=== PATIENT | male | born 1965 | race Caucasian/White ===

== ENCOUNTER 2018-06-03 10:32 | Inpatient (IN) | payer MEDICAID ==
[2018-06-03] MEDS ORDERED: Sodium Chloride 0.9% 1,000 ML IV ONE (10:58)
--- NOTE | 2018-06-03 11:40 | C.PDOC ---
History Of Present Illness 52 year old male presents to the ED for evaluation of intermittent palpitations, lightheaded, and shortness of breath that started today. The patient reports waking up and feeling lightheaded. Denies chest pain, fever, chills, and any other associated symptoms. He also admits to feeling depressed. Chief Complaint (Nursing): Dizziness/Lightheaded History Per: Patient History/Exam Limitations: no limitations Onset/Duration Of Symptoms: Hrs (prior to arrival. ) Current Symptoms Are (Timing): Still Present Fall Associated With With Symptoms: No Recent travel outside of the [place]: No Past Medical History Reviewed: Historical Data, Nursing Documentation, Vital Signs Vital Signs: Last Vital Signs Temp 98.4 F 06/03/18 10:44 Pulse 101 H 06/03/18 10:44 Resp 18 06/03/18 10:44 BP 137/69 06/03/18 10:44 Pulse Ox 98 06/03/18 10:44 Family History: States: Unknown Family Hx - Social History Hx Tobacco Use: No Hx Alcohol Use: No Hx Substance Use: No Review Of Systems Except As Marked, All Systems Reviewed And Found Negative. Constitutional: Negative for: Fever, Chills Cardiovascular: Positive for: Palpitations. Negative for: Chest Pain Respiratory: Positive for: Shortness of Breath Neurological: Positive for: Other (lightheaded. ) Psych: Positive for: Depression. Negative for: Psychosis, Suicidal ideation (or homicidal ideation) Physical Exam - Physical Exam Appears: Well, Non-toxic, No Acute Distress Skin: Normal Color, Warm, Dry Head: Atraumatic, Normacephalic Eye(s): bilateral: Normal Inspection Oral Mucosa: Moist Neck: Normal ROM, Supple Chest: Symmetrical, No Deformity Cardiovascular: Rhythm Regular, No Murmur Respiratory: Normal Breath Sounds, No Rales, No Rhonchi, No Wheezing Gastrointestinal/Abdominal: Normal Exam, Soft, No Tenderness Extremity: Normal ROM (of upper extremities. ), No Deformity, Other (mild tremors to hands bilaterally. ) Neurological/Psych: Oriented x3, Normal Speech, Normal Cognition ED Course And Treatment - Laboratory Results Result Diagrams: 06/03/18 11:39 06/03/18 11:39 ECG Rhythm: Sinus Tachycardia Interpretation Of ECG: No ST elevation. QT normal. Rate From EC O2 Sat by Pulse Oximetry: 98 (RA) Pulse Ox Interpretation: Normal - Radiology CXR: Interpreted by Me, Viewed By Me CXR Interpretation: Yes: Cardiomegaly, Pnemothorax. No: Infiltrates - CT Scan/US CTA Chest Other Rad Studies (CT/US): Read By Radiologist, Radiology Report Reviewed CT/US Interpretation: Accession No. : [id number]. Patient Name / ID : RADHA LOPEZ / [id number]. Exam Date : 06/03/2018 15:35:04 ( Approved ). Study Comment : Sex / Age : M / 52Y. Creator : Nikos Gotti. Dictator : Sarita Cortes MD. Extension Service Specialist : Millinery Blocker : Sarita Cortes MD. Approver2 : Report Date : 06/03/2018 15:45:37. My Comment : . Date of service: 06/03/2018. PROCEDURE: CT Chest with contrast (Pulmonary Angiogram). HISTORY: r/o PE. COMPARISON: Plain radiograph performed earlier the same day. TECHNIQUE: Axial computed tomography images were obtained of the chest in the pulmonary arterial phase of enhancement. Coronal and sagittal reformatted images were created and reviewed. Intravenous contrast dose: 100 mL Visipaque 320. Radiation dose: Total exam DLP = 565.02 mGy-cm. This CT exam was performed using one or more of the following dose reduction techniques: Automated exposure control, adjustment of the mA and/or kV according to patient size, and/or use of iterative reconstruction technique. FINDINGS: PULMONARY ARTERIES: There are no filling defects in the pulmonary arteries to suggest acute pulmonary embolism. AORTA: No acute findings. No thoracic aortic aneurysm. No aortic atherosclerotic calcification or mural plaque present. LUNGS: The lungs are well inflated and clear. No mass or pulmonary consolidation. There is a 3 mm nodule in peripheral left lower lobe (series 4, image 70). PLEURAL SPACES: No effusion or pneumothorax. HEART: No cardiomegaly. No significant pericardial effusion. LYMPH NODES: No pathologic mediastinal or hilar lymphadenopathy. Subcentimeter mediastinal lymph nodes are likely reactive.. BONES, CHEST WALL: Within normal limits for the patient's age. No fracture or destructive lesion. OTHER FINDINGS: There is diffuse low- attenuation in the liver. The adrenal glands are normal. No cholelithiasis. IMPRESSION: No CTA evidence for acute pulmonary embolism. Clear lungs. Severe diffuse abnormal low density in the liver could be related to fatty liver however nonspecific infectious/inflammatory/toxic etiologies cannot be entirely excluded. Clinical and laboratory correlation is advised. Medical Decision Making Medical Decision Making: Initial plan: -Blood sent. -CXR -EKG -81 mg PO Aspirin -IV fluids Progress/Update: Pt still has tremors. Now admits he drinks everyday, would like to stay for detox. PO Ativan given. Fluids changed to banana bag. insemination worker will consult and evaluate for detox. Labs reviewed, + D dimer elevated. Trop negative. + Elevated LFTs CTA ordered per PE protocol. 16:05 CTA is negative for PE. Patient is medically cleared for detox admission. Pending crisis evaluation and final disposition. 18:35 Discussed with land surveying survey worker, patient is to be admitted under Dr. Saldivar's service for alcohol use disorder and depression. Disposition Discussed With .: Marco A Saldivar Doctor Will See Patient In The: Hospital Counseled Patient/Family Regarding: Studies Performed, Diagnosis - Disposition Disposition: HOSPITALIZED Disposition Time: 18:38 Condition: STABLE - POA Present On Arrival: None - Clinical Impression Clinical Impression: Depression, Alcohol abuse - Scribe Statement The provider has reviewed the documentation as recorded by the Scribe (Lizette Jaramillo) Provider Attestation: All medical record entries made by the Ameliaibe were at my direction and personally dictated by me. I have reviewed the chart and agree that the record accurately reflects my personal performance of the history, physical exam, medical decision making, and the department course for this patient. I have also personally directed, reviewed, and agree with the discharge instructions and disposition.
[2018-06-03 11:43] LABS: EOS # 0.1 K/uL (0.0-0.7); EOS % 2.6 % (0.0-4.0); HEMOGLOBIN 15.2 g/dL (12.0-18.0); LYMPH # 0.4 K/uL (1.0-4.3); LYMPH % 13.4 % (20.0-40.0); MEAN CELL VOLUME 93.3 fL (80.0-94.0); MEAN CORPUSCULAR HEMOGLOBIN 32.3 pg (27.0-31.0); MEAN CORPUSCULAR HGB CONC 34.6 g/dL (33.0-37.0); MEAN PLATELET VOLUME 8.8 fL (7.2-11.7); MONO # 0.4 K/uL (0.0-0.8); MONO % 11.3 % (0.0-10.0); NEUT # 2.3 K/uL (1.8-7.0); NEUT % 71.7 % (50.0-75.0); RBC 4.72 Mil/uL (4.40-5.90); RED CELL DISTRIBUTION WIDTH 13.9 % (11.5-14.5); WHITE BLOOD COUNT 3.2 K/uL (4.8-10.8)
--- NOTE | 2018-06-03 12:00 | RAD ---
Date of service: 06/03/2018 PROCEDURE: CHEST RADIOGRAPH, 1 VIEW HISTORY: chest pain COMPARISON: None available. FINDINGS: LUNGS: The lungs are well inflated and clear. PLEURA: No pneumothorax or pleural effusion. CARDIOVASCULAR: The heart is normal in size. No aortic atherosclerotic calcifications present. OSSEOUS STRUCTURES: Within normal limits for the patient's age. VISUALIZED UPPER ABDOMEN: Normal. OTHER FINDINGS: None. IMPRESSION: No active pulmonary disease.
[2018-06-03 12:02] LABS: ALB/GLOB RATIO 1.5 (1.0-2.1); ALBUMIN 4.3 g/dL (3.5-5.0); ALT/SGPT 226 U/L (21-72); AST/SGOT 305 U/L (17-59); BLOOD UREA NITROGEN 10 mg/dL (9-20); CALCIUM 8.2 mg/dl (8.6-10.4); GFR NON-AFRICAN AMERICAN > 60
[2018-06-03] MEDS ORDERED: Multivitamin (MVI) 10 ML, Thiamine 100 MG, Folic Acid 1 MG in Sodium Chloride 0.9% 1,00... IV STA (12:17)
[2018-06-03] MEDS ORDERED: Potassium Chloride 20 mEq ER Tab PO STA (12:40)
[2018-06-03] MEDS ORDERED: Potassium Chloride 20 mEq ER Tab PO ONE ×2 (13:32→13:35)
[2018-06-03 13:54] LABS: SQUAMOUS EPITHIAL < 1 /hpf (0-5); URINE BACTERIA RARE (<OCC); URINE BILIRUBIN NEGATIVE (NEGATIVE); URINE BLOOD 1+ (NEGATIVE); URINE CLARITY Clear (Clear); URINE COLOR Yellow (YELLOW); URINE GLUCOSE (UA) NORMAL (Normal); URINE LEUKOCYTE ESTERASE NEG Leu/uL (Negative); URINE PROTEIN 1+ mg/dL (NEGATIVE)
[2018-06-03 14:08] LABS: B-TYPE NATRIURETIC PEPTIDE 24.6 pg/mL (0-900)
[2018-06-03 14:14] LABS: BARBITURATES, UR NEGATIVE (NEGATIVE); BENZODIAZEPINES, UR NEGATIVE (NEGATIVE); OPIATES, UR NEGATIVE (NEGATIVE); PHENCYCLIDINE, UR NEGATIVE (NEGATIVE)
[2018-06-03] MEDS ORDERED: Iodixanol 320 MG/ML 100 ML BOTTLE IV ONE (15:02)
--- NOTE | 2018-06-03 16:13 | CT ---
Date of service: 06/03/2018 PROCEDURE: CT Chest with contrast (Pulmonary Angiogram) HISTORY: r/o PE COMPARISON: Plain radiograph performed earlier the same day. TECHNIQUE: Axial computed tomography images were obtained of the chest in the pulmonary arterial phase of enhancement. Coronal and sagittal reformatted images were created and reviewed. Intravenous contrast dose: 100 mL Visipaque 320 Radiation dose: Total exam DLP = 565.02 mGy-cm. This CT exam was performed using one or more of the following dose reduction techniques: Automated exposure control, adjustment of the mA and/or kV according to patient size, and/or use of iterative reconstruction technique. FINDINGS: PULMONARY ARTERIES: There are no filling defects in the pulmonary arteries to suggest acute pulmonary embolism. AORTA: No acute findings. No thoracic aortic aneurysm. No aortic atherosclerotic calcification or mural plaque present. LUNGS: The lungs are well inflated and clear. No mass or pulmonary consolidation. There is a 3 mm nodule in peripheral left lower lobe (series 4, image 70). PLEURAL SPACES: No effusion or pneumothorax. HEART: No cardiomegaly. No significant pericardial effusion. LYMPH NODES: No pathologic mediastinal or hilar lymphadenopathy. Subcentimeter mediastinal lymph nodes are likely reactive.. BONES, CHEST WALL: Within normal limits for the patient's age. No fracture or destructive lesion OTHER FINDINGS: There is diffuse low-attenuation in the liver. The adrenal glands are normal. No cholelithiasis. IMPRESSION: No CTA evidence for acute pulmonary embolism. Clear lungs. Severe diffuse abnormal low density in the liver could be related to fatty liver however nonspecific infectious/inflammatory/toxic etiologies cannot be entirely excluded. Clinical and laboratory correlation is advised.
--- NOTE | 2018-06-03 18:59 | PCM.BM ---
Treatment Plan Problems - Problems identified on initial assessmt knowledge deficit:alcohol use Date Initiated: 06/03/18 Time Initiated: 18:57 Assessment reference: NA Status: Active anxiety related to substance use Date Initiated: 06/03/18 Time Initiated: 18:58 Assessment reference: NA Status: Active denial Date Initiated: 06/03/18 Time Initiated: 18:58 Assessment reference: NA Status: Active defensive coping Date Initiated: 06/03/18 Time Initiated: 18:59 Assessment reference: NA Status: Active Treatment assets and liabiliti Patient Assests: ADL independent, cognitively intact Patient Liabilities: substance abuse - Milieu Protocol Maintain good personal hygiene: daily Encourage regular showers, daily Remind patient to perform daily oral care, daily Assist patient to perform ADL's Conduct patient checks and document Observation sheet: Q15 minutes Maintain personal safety: every shift Educate patient to report safety concerns to staff, every shift Monitor environment for contraband/sharps Medication safety: Monitor for expected outcome, potential side effects: every shift, Assess barriers to learning: every shift, Assess readiness for medication education: every shift
[2018-06-03 19:15] VITALS: RESP 18
[2018-06-04] MEDS: Multiple Vitamins Tab PO SCH (09:39)
--- NOTE | 2018-06-04 10:08 | PCM.PSYCH ---
Initial Psychiatric Evaluation - Initial Psychiatric Evaluation Type of Admission: Voluntary Legal Status: Capacity Chief Complaint (in patient's own words): "I need to stop alcohol" History of Present Illness and Precipitating Events: 52 yo male, has a girlfriend and four older children, employed at a [employer] and currently living with his sister in [place], presents for detox from alcohol. Pt reports drinking 11 shots of vodka daily. Pt reports he began drinking socially at age 14 and then heavily since age 21. He points out that last 4 years have been the worse. Pt admits to blackouts but denies any seizures, not sure about DTs. He denies any rehab/detox programs or attending any AA meetings. Pt denies drug use. Pt admits to current feelings of depression with SI. Denies HI. He doesn't have a plan and agrees to follow safety plan, contracted for safety. He has other depressive sxs too. Stressor is financial problems and recent relational issues with his children who stopped calling. PMHx: denies PSHx: denies Past Psychiatric Hx: Has been depressed incrreasingly but did not get treatment Fam Psych Hx: Father was an alcoholic, of a heart attack Brother with unspecified psych hx Current Medications: Active Medications Generic Name Dose Route Start Last Admin Trade Name Freq PRN Reason Stop Dose Admin Aspirin 81 mg 06/04/18 10:00 06/04/18 09:38 Aspirin Chewable PO 81 mg DAILY DAVID Administration Calcium/Vitamin D 1 tab 06/04/18 10:00 Oscal-D 250 Mg-125 Units Tab PO DAILY DAVID Clonidine HCl 0.1 mg 06/03/18 21:12 06/03/18 21:32 Catapres PO 0.1 mg Q4H PRN Administration Symptoms of alcohol withdrawl Folic Acid 1 mg 06/04/18 10:00 06/04/18 09:39 Folic Acid PO 1 mg DAILY DAVID Administration Gabapentin 100 mg 06/04/18 10:00 06/04/18 09:35 Neurontin PO 100 mg TID DAVID Administration Hydroxyzine HCl 25 mg 06/03/18 21:15 06/03/18 21:32 Atarax PO 25 mg Q4H PRN Administration Anxiety Ibuprofen 400 mg 06/03/18 21:15 Motrin Tab PO Q6H PRN Pain, moderate (4-7) Lorazepam 2 mg 06/03/18 22:00 06/04/18 05:59 Ativan PO 06/08/18 21:59 2 mg Q8H DAVID Administration Taper Lorazepam 1 mg 06/03/18 21:12 Ativan PO Q4H PRN Symptoms of alcohol withdrawl Multivitamins 1 tab 06/04/18 10:00 06/04/18 09:39 Hexavitamin PO 1 tab DAILY DAVID Administration Thiamine HCl 100 mg 06/04/18 10:00 06/04/18 09:39 Vitamin B1 Tab PO 100 mg DAILY DAVID Administration Trazodone HCl 50 mg 06/03/18 21:12 06/03/18 21:32 Desyrel PO 50 mg HS PRN Administration Insomnia Past Psychiatric History - Past Psychiatric History Previous Treatment History: None Pertinent Medical Hx (Current Medical&Sleep Prob, Allergies): Allergies Allergy/AdvReac Type Severity Reaction Status Date / Time No Known Allergies Allergy Verified 03/07/15 21:04 Aspirin PO PRN PRN 06/03/18 Review of Systems - Neurological Neurological: UNREMARKABLE - Psychiatric Psychiatric: Abnormal Sleep Pattern, Anhedonia, Anxiety, Change in Appetite, Depression, Difficulty Concentrating, Mood Swings, Suicidal Ideation (On and off and w/o plan or intention). absent: Hallucinations, Homicidal Ideation, Irritability, Paranoia Mental Status Examination - Personal Presentation Personal Presentation: Looks stated age - Affect Affect: Blunted - Motor Activity Motor Activity: Calm - Reliability in Providing Information Reliability in Providing Information: Good - Speech Speech: Organized - Mood Mood: Depressed, Anxious - Formal Thought Process Formal Thought Process: No Impairment - Cognitive Functions Orientation: Person, Place, Situation, Time Sensorium: Alert Attention/Concentration: Easily distracted Estimate of Intelligence: Average Judgement: Intact, as evidence by: Insight regarding need for hospitalization Memory: Recent intact, as evidence by: Ability to recall events of the day, Remote intact, as evidenced by: Abilit to recall sig. life events - Risk Risk: Withdrawal, Diminished functioning - Strength & Assets Inventory Strength & Assets Inventory: Employment history, Cooperative - Limitations Limitations: Other DSM 5 DX - DSM 5 DSM 5 Diagnosis: Alcohol withdrawal Alcohol use disorder, severe Major depressive disorder, severe, w/o psychosis, single - Recommended/Plan of Treatment Treatment Recommendations and Plan of Treatment: Taper with Librium Gabapentin for augmentation Start on Lexapro for depression As needed medications Clonidine, Atarax, Motrin, Ativan and Trazodone All risks, benefits and alternatives of the meds discussed, and the pt agreed and understood. Attend groups and activities Supportive therapy and psychoeducation MO for abstinence CBT for relapse prevention Encourage MAT Refer to rehab or IOP, and self-help groups Teach healthy lifestyle methods, i.e. diet, exercise, meditation Smoking cessation with MO Nicotine patch if needed 34min Projected ELOS: 4-5 days Prognosis: good w treatment - Smoking Cessation Smoking Cessation Initiated: Yes
[2018-06-04] MEDS: Calcium-Vit D 250 mg-125 Units Tab UD PO SCH (10:58)
--- NOTE | 2018-06-04 11:05 | CP.PCM.CON ---
History of Present Illness - History of Present Illness History of Present Illness: PGY-1 Medicine Consult Note for Dr. Julius Monroy Patient is a 52 year old male with history of alcohol abuse and depression who medicine has been consulted on for rash which patient states he has had since about age 21. He states that the rash tends to come/is worse in the winter and worse with stress. It is sometimes pruritic and he will sometimes scratch himself and cause bleeding. He states that he is currently having a flare up for the first time in a couple of years. Prior to this recent outbreak, he has not had any skin rash in a couple of years. When he has an outbreak, the rash begins on his feet/ankles and progresses proximally to legs, stomach, buttocks, and arms. Patient denies any new soaps, creams, lotions, or shampoos. He denies any known allergies. He has not travelled outside of the since four years ago when he went to visit his home country of [place]. Patient is not aware of any formal dermatological diagnosis in the past, but does state that he has seen a senior quality control inspector in [place] and was prescribed Dermovate cream (which is Clobetasol, a topical corticosteroid) which the rash is responsive to. Of note, the patient has committed himself voluntarily to detox/psych and had earlier stated that if he had a gun he would kill himself. However when I interviewed the patient, he stated that he is feeling much better with his depression at the moment and is no longer having SI/HI. PMHx: Major depressive disorder Social history: Drinks daily, about 11 shots from 12:00pm to 10:00pm. Quit smo katie 6 years ago - used to smoke 1/2 ppd from age [age]. Used cocaine as a teen. Lives in an apartment in [place] with his sister. 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 Home medications: ASA 81 mg PO daily Allergies: NKA Surgeries: Denies Hospitalizations: Previous for psych/detox Family Hx: Mother - HTN PMD: Saw a PMD in past who , does not see a PMD currently Code: Full Code Review of Systems - Constitutional Constitutional: absent: Chills, Fatigue, Fever - EENT Eyes: absent: Blind Spots, Blurred Vision Ears: absent: Dizziness Nose/Mouth/Throat: absent: Nasal Congestion, Nasal Discharge, Dry Mouth - Cardiovascular Cardiovascular: absent: Chest Pain, Dyspnea, Palpitations - Respiratory Respiratory: absent: Cough, Dyspnea - Gastrointestinal Gastrointestinal: absent: Abdominal Pain, Nausea, Vomiting - Genitourinary Genitourinary: absent: Dysuria, Hematuria - Musculoskeletal Musculoskeletal: absent: Numbness, Tingling - Integumentary Integumentary: Dry Skin, Rash (as described) - Neurological Neurological: absent: Dizziness, Numbness, Tingling - Psychiatric Psychiatric: Anxiety, Depression Past Patient History - Infectious Disease Hx of Infectious Diseases: None - Past Medical History & Family History Past Medical History?: No - Past Social History Smoking Status: Former Smoker - CARDIAC Hx Cardiac Disorders: No Hx Hypertension: No - PULMONARY Hx Tuberculosis: No - NEUROLOGICAL HX Cerebrovascular Accident: No Hx Seizures: No - HEMATOLOGICAL/ONCOLOGICAL Hx Cancer: No Hx Human Immunodeficiency Virus (HIV): No - MUSCULOSKELETAL/RHEUMATOLOGICAL Hx Falls: No - GENITOURINARY/GYNECOLOGICAL Hx Sexually Transmitted Disorders: No - PSYCHIATRIC Hx Substance Use: Yes - SURGICAL HISTORY Hx Surgeries: No - ANESTHESIA Hx Anesthesia: No Meds Home Medications: Home Medication List Medication Instructions Recorded Confirmed Type Clobetasol 0.05% [Temovate 0.05% 30 applic TOP BID #1 tube 06/04/18 Rx OINTMENT] Allergies/Adverse Reactions: Allergies Allergy/AdvReac Type Severity Reaction Status Date / Time No Known Allergies Allergy Verified 03/07/15 21:04 - Medications Medications: Current Medications Aspirin (Aspirin Chewable) 81 mg PO DAILY [facility] Last Admin: 06/04/18 09:38 Dose: 81 mg Calcium/Vitamin D (Oscal-D 250 Mg-125 Units Tab) 1 tab PO DAILY [facility] Last Admin: 06/04/18 10:58 Dose: 1 tab Clonidine HCl (Catapres) 0.1 mg PO Q4H PRN PRN Reason: Symptoms of alcohol withdrawl Last Admin: 06/03/18 21:32 Dose: 0.1 mg Escitalopram Oxalate (Lexapro) 5 mg PO DAILY [facility] Last Admin: 06/04/18 10:58 Dose: 5 mg Folic Acid (Folic Acid) 1 mg PO DAILY [facility] Last Admin: 06/04/18 09:39 Dose: 1 mg Gabapentin (Neurontin) 100 mg PO TID [facility] Last Admin: 06/04/18 09:35 Dose: 100 mg Hydroxyzine HCl (Atarax) 25 mg PO Q4H PRN PRN Reason: Anxiety Last Admin: 06/03/18 21:32 Dose: 25 mg Ibuprofen (Motrin Tab) 400 mg PO Q6H PRN PRN Reason: Pain, moderate (4-7) Lorazepam (Ativan) 2 mg PO Q8H DAVID; Taper Stop: 06/08/18 21:59 Last Admin: 06/04/18 05:59 Dose: 2 mg Lorazepam (Ativan) 1 mg PO Q4H PRN PRN Reason: Symptoms of alcohol withdrawl Multivitamins (Hexavitamin) 1 tab PO DAILY [facility] Last Admin: 06/04/18 09:39 Dose: 1 tab Thiamine HCl (Vitamin B1 Tab) 100 mg PO DAILY [facility] Last Admin: 06/04/18 09:39 Dose: 100 mg Trazodone HCl (Desyrel) 50 mg PO HS PRN PRN Reason: Insomnia Last Admin: 06/03/18 21:32 Dose: 50 mg Physical Exam - Head Exam Head Exam: ATRAUMATIC, NORMAL INSPECTION - Eye Exam Eye Exam: EOMI, Normal appearance - ENT Exam ENT Exam: Mucous Membranes Moist - Respiratory Exam Respiratory Exam: Clear to Auscultation Bilateral, NORMAL BREATHING PATTERN. absent: Rhonchi - Cardiovascular Exam Cardiovascular Exam: REGULAR RHYTHM, +S1, +S2. absent: Tachycardia, Clicks, Diastolic murmur, Systolic Murmur - Extremities Exam Extremities exam: Negative for: pedal edema, tenderness - Neurological Exam Neurological exam: Alert, CN II-XII Intact, Oriented x3 - Psychiatric Exam Psychiatric exam: Normal Affect, Normal Mood Additional comments: Feeling less depressed. Denies suicidal or homicidal ideation at present - Skin Skin Exam: Dry Additional comments: Non-blanching maculopapular rash (approx 1cm diameter macules) extending form ankles proximally to legs, abdomen, buttocks, and arms. Excoriations noted, especially around ankles with some scabbing. No active bleeding. Dry skin. Results - Vital Signs Recent Vital Signs: Last Vital Signs Temp 97.7 F 06/04/18 08:23 Pulse 81 06/04/18 08:23 Resp 18 06/04/18 08:23 BP 146/77 06/04/18 08:23 Pulse Ox 98 06/04/18 08:23 - Labs Result Diagrams: 06/03/18 11:39 06/03/18 11:39 Labs: Laboratory Results - last 24 hr 06/03/18 06/03/18 06/03/18 11:39 11:39 11:39 WBC 3.2 L RBC 4.72 Hgb 15.2 Hct 44.0 MCV 93.3 MCH 32.3 H MCHC 34.6 RDW 13.9 Plt Count 178 MPV 8.8 Neut % (Auto) 71.7 Lymph % (Auto) 13.4 L Starke % (Auto) 11.3 H Eos % (Auto) 2.6 Baso % (Auto) 1.0 Neut # (Auto) 2.3 Lymph # (Auto) 0.4 L Starke # (Auto) 0.4 Eos # (Auto) 0.1 Baso # (Auto) 0.0 D-Dimer, Quantitative 395 H Sodium 140 Potassium 3.2 L Chloride 102 Carbon Dioxide 26 Anion Gap 15 BUN 10 Creatinine 0.5 L Est GFR ( Amer) > 60 Est GFR (Non-Af Amer) > 60 Random Glucose 93 Calcium 8.2 L Phosphorus 3.2 Magnesium 2.0 Total Bilirubin 0.8 AST 305 H ALT 226 H Alkaline Phosphatase 119 Troponin I < 0.0120 NT-Pro-B Natriuret Pep 24.6 Total Protein 7.1 Albumin 4.3 Globulin 2.8 Albumin/Globulin Ratio 1.5 Urine Color Urine Clarity Urine pH Ur Specific [place] Urine Protein Urine Glucose (UA) Urine Ketones Urine Blood Urine Nitrate Urine Bilirubin Urine Urobilinogen Ur Leukocyte Esterase Urine WBC (Auto) Urine RBC (Auto) Ur Squamous Epith Cells Urine Bacteria Urine Opiates Screen Urine Methadone Screen Ur Barbiturates Screen Ur Phencyclidine Scrn Ur Amphetamines Screen U Benzodiazepines Scrn U Oth Cocaine Metabols U Cannabinoids Screen Alcohol, Quantitative 50 H 06/03/18 06/03/18 13:38 13:38 WBC RBC Hgb Hct MCV MCH MCHC RDW Plt Count MPV Neut % (Auto) Lymph % (Auto) Starke % (Auto) Eos % (Auto) Baso % (Auto) Neut # (Auto) Lymph # (Auto) Starke # (Auto) Eos # (Auto) Baso # (Auto) D-Dimer, Quantitative Sodium Potassium Chloride Carbon Dioxide Anion Gap BUN Creatinine Est GFR ( Amer) Est GFR (Non-Af Amer) Random Glucose Calcium Phosphorus Magnesium Total Bilirubin AST ALT Alkaline Phosphatase Troponin I NT-Pro-B Natriuret Pep Total Protein Albumin Globulin Albumin/Globulin Ratio Urine Color Yellow Urine Clarity Clear Urine pH 6.0 Ur Specific [place] 1.018 Urine Protein 1+ H Urine Glucose (UA) Normal Urine Ketones 1+ H Urine Blood 1+ H Urine Nitrate Negative Urine Bilirubin Negative Urine Urobilinogen 4.0 Ur Leukocyte Esterase Neg Urine WBC (Auto) 1 Urine RBC (Auto) 1 Ur Squamous Epith Cells < 1 Urine Bacteria Rare Urine Opiates Screen Negative Urine Methadone Screen Negative Ur Barbiturates Screen Negative Ur Phencyclidine Scrn Negative Ur Amphetamines Screen Negative U Benzodiazepines Scrn Negative U Oth Cocaine Metabols Negative U Cannabinoids Screen Negative Alcohol, Quantitative Assessment & Plan - Assessment and Plan (Free Text) Assessment: Psoriasis -Clobetasol 0.05 topical ointment BID - Apply gently to affected areas by rubbing in completely -Continue to monitor -Alcohol use will worsen EtOH Abuse/Detox -Mangement per psych --Observation on 7t detox -Meds: --Thiamine/Folic acid/Multivitamin --Avitan 2mg PO Q8 DAVID --Ativan 1mg PO Q4 prn for symptoms of alcohol withdrawal --Trazodone 50 mg PO HS prn for insomnia --Clonidine 0.1 mg PO Q4 prn withdrawal/hypertension --Gabapentin 100 mg PO TID Depression/Anxiety -Lexapro 5mg PO daily -Atarax 25 mg PO Q4 prn anxiety -Monitor for suicidal ideations PPx -No VTE ppx indicated - patient on detox floor, ambulating, not bed-bound Prescription for Clobetasol will be left in patient's chart. Please note drinking alcohol will worsen this condition. Medicine signing off. Assessment/Plan discussed with Dr. Julius Harris, PGY-1
[2018-06-04 17:53] LABS: ALB/GLOB RATIO 1.4 (1.0-2.1); ALBUMIN 3.9 g/dL (3.5-5.0); ALT/SGPT 178 U/L (21-72); AST/SGOT 214 U/L (17-59); BLOOD UREA NITROGEN 10 mg/dL (9-20); CALCIUM 8.3 mg/dl (8.6-10.4); GFR NON-AFRICAN AMERICAN > 60
--- NOTE | 2018-06-04 21:30 | CARD ---
APPROVED REPORT Date of service: 06/03/2018 EKG Measurement Heart [id number] MD [id number] <Conclusion> Sinus tachycardia Otherwise normal ECG
--- NOTE | 2018-06-04 22:25 | CP.PCM.PCO ---
Physician Communication Note - Physician Communication Note Physician Communication Note: Please see above
[2018-06-05] MEDS: Multiple Vitamins Tab PO SCH (09:54)
[2018-06-05] MEDS: Calcium-Vit D 250 mg-125 Units Tab UD PO SCH (10:58)
[2018-06-06] MEDS: Calcium-Vit D 250 mg-125 Units Tab UD PO SCH (09:27)
[2018-06-06] MEDS: Multiple Vitamins Tab PO SCH (09:27)
[2018-06-07 06:32] VITALS: O2SAT 98
--- NOTE | 2018-06-07 08:21 | PCM.PYCHDC ---
Mental Status Examination - Mental Status Examination Orientation: Person Discharge Summary - Discharge Note Consultations:: List each consultation separately and include: 1. Reason for request. 2. Findings. 3. Follow-up Summary of Hospital Course include:: 1. Description of specific treatment plan utilized for patients during their course of treatmen. 2. Summarize the time- course for resolution of acute symptoms and/or regressed behaviors. 3. Describe issues identified and worked on during hospitalization. 4. Describe medication utilized. 5. Describe medical problems identified and treated. 6. Reassessment of suicide risk Summary of Hospital Course: 52 yo male, has a girlfriend and four older children, employed at a [employer] and currently living with his sister in [place], presents for detox from alcohol. Pt reports drinking 11 shots of vodka daily. Pt reports he began drinking socially at age 14 and then heavily since age 21. He points out that last 4 years have been the worse. Pt admits to blackouts but denies any seizures, not sure about DTs. He denies any rehab/detox programs or attending any AA meetings. Pt denies drug use. Pt admits to current feelings of depression with SI. Denies HI. He doesn't have a plan and agrees to follow safety plan, contracted for safety. He has other depressive sxs too. Stressor is financial problems and recent relational issues with his children who stopped calling. PMHx: denies PSHx: denies Past Psychiatric Hx: Has been depressed incrreasingly but did not get treatment Fam Psych Hx: Father was an alcoholic, of a heart attack Brother with unspecified psych hx He will go to [facility] IOP. - Final Diagnosis (DSM 5) Condition upon Discharge: STABLE Disposition: HOME/ ROUTINE Follow-up Treatment Plan: Taper with Librium Gabapentin for augmentation Start on Lexapro for depression As needed medications Clonidine, Atarax, Motrin, Ativan and Trazodone All risks, benefits and alternatives of the meds discussed, and the pt agreed and understood. Attend groups and activities Supportive therapy and psychoeducation [place] for abstinence CBT for relapse prevention Encourage MAT Refer to rehab or IOP, and self-help groups Teach healthy lifestyle methods, i.e. diet, exercise, meditation Smoking cessation with [place] Nicotine patch if needed 34min Prescriptions/Medication Reconciliation: Aspirin [Aspirin Chewable] 81 mg PO DAILY #30 chew Clobetasol 0.05% [Temovate 0.05% OINTMENT] 30 applic TOP BID #1 tube Escitalopram [Lexapro] 10 mg PO DAILY #30 tab LORazepam [Ativan] 1 mg PO Q12H #3 tab traZODone [Desyrel] 50 mg PO HS PRN #30 tab PRN Reason: Insomnia
[2018-06-07] MEDS: Multiple Vitamins Tab PO SCH (09:50)
[2018-06-07] MEDS: Calcium-Vit D 250 mg-125 Units Tab UD PO SCH (09:51)
[2018-06-07 10:57] VITALS: BP 122/80; PULSE 93; TEMP 97.6
== END 2018-06-07 11:08 | disposition home or self-care (01) | DRG 751 ==
LOC: C.ER 10:32 → C.7D 18:37
PROVIDERS: ADMIT Psychiatry & Neurology Psychiatry; ATTEND Psychiatry & Neurology Psychiatry
PROC: GZHZZZZ Group Psychotherapy (ICD-10-PCS; principal; 2018-06-03)
PROC: GZ56ZZZ Individual Psychotherapy, Supportive (ICD-10-PCS; 2018-06-03)
DX: F32.2 Major depressive disorder, single episode, severe without psychotic features (principal); F10.230 Alcohol dependence with withdrawal, uncomplicated; Y90.2 Blood alcohol level of 40-59 mg/100 ml; L29.9 Pruritus, unspecified; Z87.891 Personal history of nicotine dependence; L40.9 Psoriasis, unspecified

== ENCOUNTER 2018-06-18 17:54 | Observation (INO) | payer MEDICAID ==
[2018-06-18 18:52] LABS: BASO % 0.4 % (0.0-2.0); EOS % 0.1 % (0.0-4.0); HEMOGLOBIN 16.7 g/dL (12.0-18.0); LYMPH # 0.3 K/uL (1.0-4.3); LYMPH % 3.7 % (20.0-40.0); MEAN CELL VOLUME 94.7 fL (80.0-94.0); MEAN CORPUSCULAR HEMOGLOBIN 32.1 pg (27.0-31.0); MEAN CORPUSCULAR HGB CONC 33.9 g/dL (33.0-37.0); MEAN PLATELET VOLUME 9.5 fL (7.2-11.7); MONO # 0.5 K/uL (0.0-0.8); MONO % 5.3 % (0.0-10.0); NEUT # 8.2 K/uL (1.8-7.0); NEUT % 90.5 % (50.0-75.0); PLATELET COUNT 273 K/uL (130-400); RED CELL DISTRIBUTION WIDTH 13.3 % (11.5-14.5); WHITE BLOOD COUNT 9.1 K/uL (4.8-10.8)
[2018-06-18 19:03] LABS: URINE BACTERIA RARE (<OCC); URINE BILIRUBIN NEGATIVE (NEGATIVE); URINE BLOOD NEGATIVE (NEGATIVE); URINE CLARITY Hazy (Clear); URINE COLOR Amber (YELLOW); URINE GLUCOSE (UA) NORMAL (Normal); URINE LEUKOCYTE ESTERASE NEG Leu/uL (Negative); URINE PROTEIN 2+ mg/dL (NEGATIVE); URINE UROBILINOGEN NORMAL mg/dL (0.2-1.0)
[2018-06-18 19:18] LABS: ALB/GLOB RATIO 1.5 (1.0-2.1); ALBUMIN 5.1 g/dL (3.5-5.0); ALT/SGPT 96 U/L (21-72); AST/SGOT 79 U/L (17-59); BLOOD UREA NITROGEN 16 mg/dL (9-20); CALCIUM 9.1 mg/dl (8.6-10.4); GFR NON-AFRICAN AMERICAN > 60; LIPASE 46 U/L (23-300)
--- NOTE | 2018-06-18 19:37 | C.PDOC ---
History Of Present Illness 52 year old male with no significant PMHx presents to the ED c/o abdominal pain associated with nausea, vomit and diarrhea that started at 02:00. Patient states his abdominal pain is diffuse. Patient denies fever, chills, dysuria, hematuria, back pain, rash, recent travel, sick contacts, recent antibiotics consumption. Time Seen by Provider: 06/18/18 18:07 Chief Complaint (Nursing): Abdominal Pain History Per: Patient History/Exam Limitations: no limitations Onset/Duration Of Symptoms: Hrs (02:00) Current Symptoms Are (Timing): Still Present Location Of Pain/Discomfort: Diffuse Quality Of Discomfort: "Pain" Associated Symptoms: Nausea, Vomiting, Diarrhea Recent travel outside of the [place]: No Additional History Per: Patient Past Medical History Reviewed: Historical Data, Nursing Documentation, Vital Signs Vital Signs: Last Vital Signs Temp 97.8 F 06/18/18 17:58 Pulse 81 06/18/18 17:58 Resp 20 06/18/18 17:58 BP 143/84 06/18/18 17:58 Pulse Ox 100 06/18/18 17:58 - Medical History PMH: No Chronic Diseases Denies: Diabetes, Hepatitis, HIV, HTN, Seizures, Sexually Transmitted Disease Surgical History: No Surg Hx - [facility] Procedures GROUP PSYCHOTHERAPY (06/03/18) INDIVIDUAL PSYCHOTHERAPY, SUPPORTIVE (06/03/18) Family History: States: Unknown Family Hx - Social History Hx Tobacco Use: No Hx Alcohol Use: No Hx Substance Use: No - Immunization History Hx Influenza Vaccination: No Hx Pneumococcal Vaccination: No Review Of Systems Constitutional: Negative for: Fever, Chills Cardiovascular: Negative for: Chest Pain Respiratory: Negative for: Shortness of Breath Gastrointestinal: Positive for: Nausea, Vomiting, Abdominal Pain, Diarrhea Genitourinary: Negative for: Dysuria, Hematuria Musculoskeletal: Negative for: Back Pain Skin: Negative for: Rash Neurological: Negative for: Weakness, Numbness, Headache, Dizziness Physical Exam - Physical Exam Appears: Non-toxic, No Acute Distress Skin: Normal Color, Warm, Dry Head: Atraumatic, Normacephalic Eye(s): bilateral: Normal Inspection Oral Mucosa: Moist Neck: Normal ROM, Supple Chest: Symmetrical Cardiovascular: Rhythm Regular Respiratory: Normal Breath Sounds, No Rales, No Rhonchi, No Wheezing Gastrointestinal/Abdominal: Soft, No Tenderness, No Guarding, No Rebound Back: No CVA Tenderness Extremity: Bilateral: Atraumatic, Normal Color And Temperature, Normal ROM Neurological/Psych: Oriented x3, Normal Speech, Normal Cognition Gait: Steady ED Course And Treatment - Laboratory Results Result Diagrams: 06/18/18 18:39 06/18/18 18:39 Lab Results: Total Bilirubin 0.8 mg/dL (0.2-1.3) 06/18/18 18:39 AST 79 U/L (17-59) H D 06/18/18 18:39 ALT 96 U/L (21-72) H D 06/18/18 18:39 Alkaline Phosphatase 106 U/L (38-126) 06/18/18 18:39 Total Protein 8.5 g/dL (6.3-8.3) H 06/18/18 18:39 Albumin 5.1 g/dL (3.5-5.0) H D 06/18/18 18:39 Globulin 3.4 gm/dL (2.2-3.9) 06/18/18 18:39 Albumin/Globulin Ratio 1.5 (1.0-2.1) 06/18/18 18:39 Lipase 46 U/L (23-300) 06/18/18 18:39 Urine Color Nga (YELLOW) 06/18/18 18:39 Urine Clarity Hazy (Clear) 06/18/18 18:39 Urine pH 5.0 (5.0-8.0) 06/18/18 18:39 Ur Specific [place] 1.030 (1.003-1.030) 06/18/18 18:39 Urine Protein 2+ mg/dL (NEGATIVE) H 06/18/18 18:39 Urine Glucose (UA) Normal mg/dL (Normal) 06/18/18 18:39 Urine Ketones Negative mg/dL (NEGATIVE) 06/18/18 18:39 Urine Blood Negative (NEGATIVE) 06/18/18 18:39 Urine Nitrate Negative (NEGATIVE) 06/18/18 18:39 Urine Bilirubin Negative (NEGATIVE) 06/18/18 18:39 Urine Urobilinogen Normal mg/dL (0.2-1.0) 06/18/18 18:39 Ur Leukocyte Esterase Neg Taylor/uL (Negative) 06/18/18 18:39 Urine WBC (Auto) 4 /hpf (0-5) 06/18/18 18:39 Urine RBC (Auto) 2 /hpf (0-3) 06/18/18 18:39 Urine Bacteria Rare (<OCC) 06/18/18 18:39 O2 Sat by Pulse Oximetry: 100 (On RA) Pulse Ox Interpretation: Normal - CT Scan/US CT abd/pelvis Other Rad Studies (CT/US): Read By Radiologist, Radiology Report Reviewed CT/US Interpretation: EXAM: CT Abdomen with IV contrast. CLINICAL HISTORY: Abd pain. TECHNIQUE: Axial computed tomography images of the abdomen and pelvis with intravenous contrast. 0.00 mGy-cm. CONTRAST: With; VISI 320 100MLS. COMPARISON: None provided. FINDINGS: LUNG BASES: The lung bases appear clear. No pleural effusions are seen. LIVER: There is fatty infiltration of liver. GALLBLADDER AND BILE DUCTS: The gallbladder appears within normal limits. No radioopaque gallstones are seen. No biliary ductal dilatation is evident. PANCREAS: Unremarkable. SPLEEN: Unremarkable. ADRENAL GLANDS: Unremarkable. KIDNEYS, URETERS, AND BLADDER: The kidneys appear within normal limits. There is no hydronephrosis or hydroureter. No urinary calculi are seen. STOMACH AND BOWEL: Thick walled fluid filled duodenum and loops of jejunum as well as ileum compatible with enteritis. Thick walled fluid filled colon is noted with involvement of all segments compatible with diffuse pancolitis. Infectious and inflammatory etiologies are considered. There is mild sigmoid diverticulosis without convincing evidence for acute diverticulitis. No bowel obstruction. APPENDIX: Normal appendix is present in the right lower quadrant. PERITONEUM: No pneumoperitoneum. No ascites. LYMPH NODES: No lymphadenopathy is evident. VASCULATURE: The abdominal aorta is mildly tortuous. BONES: Mild degenerative changes of the spine. There is a mild levoscoliosis centered at L1. MISCELLANEOUS: No definite acute pathology identified in the abdomen or pelvis. IMPRESSION: Enterocolitis. Infectious and inflammatory etiologies are considered. There is mild sigmoid diverticulosis without convincing evidence for acute diverticulitis. Additional and incidental findings as described. . Electronically signed on Jun 18, 2018 11:48:55 PM EST by: Joseph Prieto M.D., CHARLENE Certified By ABR & CBCCT. Fellowship Trained MRI and CT Specialist Medical Decision Making Medical Decision Making: Plan: * Labs * UA On review of labs: bandemia present. Patient is still complaining of abdominal pain. CT A/P ordered. Disposition - Disposition Forms: [facility] ([place]) - Scribe Statement The provider has reviewed the documentation as recorded by the Scribe Coy Alonzo All medical record entries made by the Scribe were at my direction and personally dictated by me. I have reviewed the chart and agree that the record accurately reflects my personal performance of the history, physical exam, medical decision making, and the department course for this patient. I have also personally directed, reviewed, and agree with the discharge instructions and disposition.
[2018-06-18] MEDS ORDERED: Potassium Chloride 20 mEq ER Tab PO STA (20:26)
[2018-06-18] MEDS ORDERED: Potassium Chloride 20 mEq ER Tab PO ONE (21:03)
[2018-06-18 21:05] LABS: PLATELET ESTIMATE NORMAL (NORMAL)
[2018-06-18 21:06] LABS: BANDS 6 % (0-2); LYMPHOCYTE 4 % (20-40); MONOCYTE 6 % (0-10); NEUTROPHIL 84 % (50-75); TOTAL CELLS COUNTED 100
[2018-06-18 21:07] LABS: ANISOCYTOSIS SLIGHT; HYPERSEGMENTATION PRESENT; LARGE PLATELETS PRESENT; POIKILOCYTOSIS SLIGHT; SMUDGE CELLS PRESENT; TEARDROP CELLS SLIGHT
[2018-06-18] MEDS ORDERED: Iodixanol 320 MG/ML 100 ML BOTTLE IV ONE (22:14)
[2018-06-19] MEDS ORDERED: Ciprofloxacin 400mg/200ml D5W 400 MG/200 ML BAG IVPB STA (00:36)
[2018-06-19] MEDS ORDERED: metroNIDAZOLE IV 500 mg/100 ml 500 MG/100 ML BAG IVPB STA (00:37)
[2018-06-19] MEDS ORDERED: metroNIDAZOLE IV 500 mg/100 ml 500 MG/100 ML BAG ONE (00:55)
--- NOTE | 2018-06-19 09:53 | CT ---
CT abdomen and pelvis HISTORY: Abdominal pain. COMPARISON: None available. TECHNIQUE: Multiple contiguous axial images were performed through the abdomen and pelvis with the use of intravenous contrast. Subsequently, sagittal and coronal reformatted images were obtained. This CT exam was performed using one or more of the following dose reduction techniques: Automated exposure control, adjustment of the mA and/or kV according to patient size, and/or use of iterative reconstruction technique. Findings: Lung bases are clear. No pleural or pericardial effusion. Fatty infiltration of the liver. Gallbladder is preserved. Spleen is preserved. Adrenal glands are preserved. Pancreas is preserved. Fluid-filled and distended stomach. Multiple thickened and distended loops of small bowel seen in the mid abdomen. Right kidney: No calculi or hydronephrosis. Left Kidney: No calculi or hydronephrosis. Mild thickening at the anterior aspect of the urinary bladder. Prostate is preserved. Fluid-filled distended and mildly thickened colon. Colonic diverticulosis. Appendix is within normal limits. No significant abdominal or pelvic lymphadenopathy. Degenerative changes in the spine. Prominent osteophytosis at the L5-S1 level. Impression: 1. Fluid-filled distended and mildly thickened colon. Mild acute infectious and or inflammatory changes cannot be excluded. Clinical correlation. 2. Multiple thickened and distended loops of small bowel seen in the mid abdomen. Mild acute infectious and or inflammatory changes cannot be excluded. Clinical correlation. Additional findings as above. A preliminary report was generated at 11:48 p.m. on 06/18/[address] Joseph Prieto from [facility].
[2018-06-19] MEDS: metroNIDAZOLE IV 500 mg/100 ml 500 MG/100 ML BAG IVPB SCH ×2 (12:40→18:56)
--- NOTE | 2018-06-19 14:21 | CP.PCM.HP ---
Past Patient History - Infectious Disease Hx of Infectious Diseases: None - Past Medical History & Family History Past Medical History?: No - Past Social History Smoking Status: Former Smoker - CARDIAC Hx Hypertension: No - PULMONARY Hx Tuberculosis: No - NEUROLOGICAL Hx Seizures: No - HEMATOLOGICAL/ONCOLOGICAL Hx Human Immunodeficiency Virus (HIV): No - MUSCULOSKELETAL/RHEUMATOLOGICAL Hx Falls: No - GENITOURINARY/GYNECOLOGICAL Hx Sexually Transmitted Disorders: No - PSYCHIATRIC Hx Substance Use: No - SURGICAL HISTORY Hx Surgeries: No - ANESTHESIA Hx Anesthesia: No Meds Allergies/Adverse Reactions: Allergies Allergy/AdvReac Type Severity Reaction Status Date / Time No Known Allergies Allergy Verified 06/18/18 18:01 Physical Exam - Constitutional Appears: Well - Head Exam Head Exam: ATRAUMATIC, NORMAL INSPECTION, NORMOCEPHALIC - Eye Exam Eye Exam: EOMI, Normal appearance, PERRL Pupil Exam: NORMAL ACCOMODATION, PERRL - ENT Exam ENT Exam: Mucous Membranes Moist, Normal Exam - Neck Exam Neck exam: Positive for: Normal Inspection - Respiratory Exam Respiratory Exam: Decreased Breath Sounds - Cardiovascular Exam Cardiovascular Exam: REGULAR RHYTHM, +S1, +S2 - GI/Abdominal Exam GI & Abdominal Exam: Diminished Bowel Sounds, Soft - Rectal Exam Rectal Exam: Deferred Results - Vital Signs Recent Vital Signs: Last Vital Signs Temp 97.9 F 06/19/18 12:30 Pulse 76 06/19/18 12:30 Resp 18 06/19/18 12:30 BP 117/76 06/19/18 12:30 Pulse Ox 97 06/19/18 12:30 - Labs Result Diagrams: 06/18/18 18:39 06/18/18 18:39 Labs: Laboratory Results - last 24 hr 06/18/18 06/18/18 06/18/18 18:39 18:39 18:39 WBC 9.1 D RBC 5.20 Hgb 16.7 Hct 49.2 MCV 94.7 H MCH 32.1 H MCHC 33.9 RDW 13.3 Plt Count 273 MPV 9.5 Neut % (Auto) 90.5 H Lymph % (Auto) 3.7 L [place] % (Auto) 5.3 Eos % (Auto) 0.1 Baso % (Auto) 0.4 Neut # (Auto) 8.2 H Lymph # (Auto) 0.3 L [place] # (Auto) 0.5 Eos # (Auto) 0.0 Baso # (Auto) 0.0 Neutrophils % (Manual) 84 H Band Neutrophils % 6 H Lymphocytes % (Manual) 4 L Monocytes % (Manual) 6 Hypersegmented Polys Present Smudge Cells Present Platelet Estimate Normal Large Platelets Present Poikilocytosis (manual Slight Anisocytosis (manual) Slight Macrocytosis (manual) Slight Tear Drop Cells Slight Sodium 140 Potassium 3.3 L Chloride 103 Carbon Dioxide 25 Anion Gap 15 BUN 16 Creatinine 0.7 L Est GFR ( Amer) > 60 Est GFR (Non-Af Amer) > 60 Random Glucose 146 H D Calcium 9.1 Total Bilirubin 0.8 AST 79 H D ALT 96 H D Alkaline Phosphatase 106 Total Protein 8.5 H Albumin 5.1 H D Globulin 3.4 Albumin/Globulin Ratio 1.5 Lipase 46 Urine Color Nga Urine Clarity Hazy Urine pH 5.0 Ur Specific [place] 1.030 Urine Protein 2+ H Urine Glucose (UA) Normal Urine Ketones Negative Urine Blood Negative Urine Nitrate Negative Urine Bilirubin Negative Urine Urobilinogen Normal Ur Leukocyte Esterase Neg Urine WBC (Auto) 4 Urine RBC (Auto) 2 Urine Bacteria Rare
--- NOTE | 2018-06-19 14:21 | CP.PCM.PN ---
Subjective - Date & Time of Evaluation Date of Evaluation: 06/19/18 Time of Evaluation: 08:45 - Subjective Subjective: clinically same Objective - Vital Signs/Intake and Output Vital Signs (last 24 hours): Temp Pulse Resp BP Pulse Ox 97.9 F 76 18 117/76 97 06/19/18 12:30 06/19/18 12:30 06/19/18 12:30 06/19/18 12:30 06/19/18 12:30 - Medications Medications: Current Medications Famotidine (Pepcid) 20 mg IVP Q12 DAVID Last Admin: 06/19/18 12:41 Dose: Not Given Heparin Sodium (Porcine) (Heparin) 5,000 units SC Q12 DAVID Sodium Chloride (Sodium Chloride 0.9%) 1,000 mls @ 80 mls/hr IV .[id number] [facility]ID Ciprofloxacin (Cipro 400mg/200ml Dsw) 400 mg in 200 mls @ 133 mls/hr IVPB Q12H DAVID; Protocol Metronidazole (Flagyl) 500 mg in 100 mls @ 100 mls/hr IVPB Q8H DAVID; Protocol Last Admin: 06/19/18 12:40 Dose: Not Given Influenza Virus Vaccine (Flucelvax Quad [id number] Syr) 60 mcg IM .ONCE ONE Stop: 06/21/18 10:01 Pneumococcal Polyvalent Vaccine (Pneumovax 23 Vaccine) 0.5 ml IM .ONCE ONE Stop: 06/21/18 12:34 - Labs Labs: 06/18/18 18:39 06/18/18 18:39 - Constitutional Appears: Well - Head Exam Head Exam: ATRAUMATIC, NORMAL INSPECTION, NORMOCEPHALIC - Eye Exam Eye Exam: EOMI, Normal appearance, PERRL Pupil Exam: NORMAL ACCOMODATION, PERRL - ENT Exam ENT Exam: Mucous Membranes Moist, Normal Exam - Neck Exam Neck Exam: Full ROM, Normal Inspection. absent: Lymphadenopathy - Respiratory Exam Respiratory Exam: Decreased Breath Sounds - Cardiovascular Exam Cardiovascular Exam: REGULAR RHYTHM, +S1, +S2 - GI/Abdominal Exam GI & Abdominal Exam: Soft, Diminished Bowel Sounds - Rectal Exam Rectal Exam: Deferred
[2018-06-19] MEDS: Ciprofloxacin 400mg/200ml D5W 400 MG/200 ML BAG IVPB SCH (15:40)
[2018-06-19 16:32] VITALS: RESP 20
[2018-06-19] MEDS ORDERED: Potassium Chloride 20 mEq ER Tab PO STA (17:53)
[2018-06-19] MEDS: Sodium Chloride 0.9% 1,000 ML IV SCH (22:15)
[2018-06-20] MEDS: metroNIDAZOLE IV 500 mg/100 ml 500 MG/100 ML BAG IVPB SCH ×3 (01:21→18:09)
[2018-06-20] MEDS: Ciprofloxacin 400mg/200ml D5W 400 MG/200 ML BAG IVPB SCH ×2 (04:00→16:18)
[2018-06-20] MEDS: Sodium Chloride 0.9% 1,000 ML IV SCH ×3 (05:35→23:08)
[2018-06-20 08:37] LABS: BASO % 0.6 % (0.0-2.0); EOS # 0.5 K/uL (0.0-0.7); EOS % 11.6 % (0.0-4.0); HEMOGLOBIN 15.3 g/dL (12.0-18.0); LYMPH % 24.6 % (20.0-40.0); MEAN CELL VOLUME 93.4 fL (80.0-94.0); MEAN CORPUSCULAR HEMOGLOBIN 31.7 pg (27.0-31.0); MEAN CORPUSCULAR HGB CONC 33.9 g/dL (33.0-37.0); MEAN PLATELET VOLUME 9.5 fL (7.2-11.7); MONO # 0.6 K/uL (0.0-0.8); MONO % 14.9 % (0.0-10.0); NEUT # 1.9 K/uL (1.8-7.0); NEUT % 48.3 % (50.0-75.0); NRBC % 0.2 % (0.0-2.0); RBC 4.84 Mil/uL (4.40-5.90); RED CELL DISTRIBUTION WIDTH 13.1 % (11.5-14.5)
[2018-06-20 08:40] LABS: WHITE BLOOD COUNT 3.9 K/uL (4.8-10.8)
[2018-06-20 08:46] LABS: ALB/GLOB RATIO 1.3 (1.0-2.1); ALBUMIN 3.4 g/dL (3.5-5.0); ALT/SGPT 99 U/L (21-72); AST/SGOT 82 U/L (17-59); BLOOD UREA NITROGEN 9 mg/dL (9-20); CALCIUM 8.2 mg/dl (8.6-10.4); GFR NON-AFRICAN AMERICAN > 60
[2018-06-20 16:44] LABS: HEPATITIS B SURFACE AG Negative (NEGATIVE)
[2018-06-20 16:49] LABS: HEPATITIS A IGM NEGATIVE (NEGATIVE); HEPATITIS B CORE AB NEGATIVE (NEGATIVE)
[2018-06-20 17:01] LABS: HEPATITIS C ANTIBODY NEGATIVE (NEGATIVE)
--- NOTE | 2018-06-20 18:11 | CP.PCM.PN ---
Subjective - Date & Time of Evaluation Date of Evaluation: 06/20/18 Time of Evaluation: 09:00 - Subjective Subjective: clinically same Objective - Vital Signs/Intake and Output Vital Signs (last 24 hours): Temp Pulse Resp BP Pulse Ox 98.4 F 78 20 121/79 97 06/20/18 08:34 06/20/18 08:34 06/20/18 08:34 06/20/18 08:34 06/20/18 08:34 Intake and Output: 06/20/18 06/20/18 06:59 18:59 Intake Total 990 1340 Balance 990 1340 - Medications Medications: Current Medications Escitalopram Oxalate (Lexapro) 10 mg PO DAILY [facility] Last Admin: 06/20/18 09:49 Dose: 10 mg Famotidine (Pepcid) 20 mg IVP Q12 DAVID Last Admin: 06/20/18 09:48 Dose: 20 mg Heparin Sodium (Porcine) (Heparin) 5,000 units SC Q12 DAVID Last Admin: 06/20/18 09:48 Dose: 5,000 units Sodium Chloride (Sodium Chloride 0.9%) 1,000 mls @ 80 mls/hr IV .[id number] DAVID Last Admin: 06/20/18 10:46 Dose: Not Given Ciprofloxacin (Cipro 400mg/200ml Dsw) 400 mg in 200 mls @ 133 mls/hr IVPB Q12H DAVID; Protocol Last Admin: 06/20/18 16:18 Dose: 133 mls/hr Metronidazole (Flagyl) 500 mg in 100 mls @ 100 mls/hr IVPB Q8H DAVID; Protocol Last Admin: 06/20/18 18:09 Dose: 100 mls/hr Influenza Virus Vaccine (Flucelvax Quad [id number] Syr) 60 mcg IM .ONCE ONE Stop: 06/21/18 10:01 Lorazepam (Ativan) 1 mg PO Q12H PRN PRN Reason: Anxiety Last Admin: 06/19/18 19:26 Dose: 1 mg Pneumococcal Polyvalent Vaccine (Pneumovax 23 Vaccine) 0.5 ml IM .ONCE ONE Stop: 06/21/18 12:34 Trazodone HCl (Desyrel) 50 mg PO HS PRN PRN Reason: Insomnia Last Admin: 06/19/18 22:03 Dose: 50 mg - Labs Labs: 06/20/18 08:18 06/20/18 08:18 - Constitutional Appears: Well - Head Exam Head Exam: ATRAUMATIC, NORMAL INSPECTION, NORMOCEPHALIC - Eye Exam Eye Exam: EOMI, Normal appearance, PERRL Pupil Exam: NORMAL ACCOMODATION, PERRL - ENT Exam ENT Exam: Mucous Membranes Moist, Normal Exam - Neck Exam Neck Exam: Full ROM, Normal Inspection. absent: Lymphadenopathy - Respiratory Exam Respiratory Exam: Decreased Breath Sounds - Cardiovascular Exam Cardiovascular Exam: REGULAR RHYTHM, +S1, +S2 - GI/Abdominal Exam GI & Abdominal Exam: Soft, Diminished Bowel Sounds - Rectal Exam Rectal Exam: Deferred
[2018-06-21] MEDS: metroNIDAZOLE IV 500 mg/100 ml 500 MG/100 ML BAG IVPB SCH ×2 (01:20→10:07)
[2018-06-21] MEDS: Ciprofloxacin 400mg/200ml D5W 400 MG/200 ML BAG IVPB SCH (03:39)
--- NOTE | 2018-06-21 07:30 | CP.PCM.CON ---
<Miguel Ashby - Last Filed: 06/21/18 10:43> History of Present Illness - History of Present Illness History of Present Illness: GI Fellow PGY4, consult note. Butch Torrez is a very pleasant 52M who presented with acute abdominal pain, vomiting and diarrhea. Patient reports feeling well until Monday night after eating reheated chicken. He first developed watery, yellow diarrhea. Then, the next morning he was having large yellow vomiting episodes. The symptoms resolved Monday. He feels well now, no complaints. He is tolerating Clear liquid diet. He denies blood in stool, recorded fever, syncope, previous problems of the GI tract. He has denies recent travel, sick contacts, antibiotics. He states he ate the same food his family did and no one else became ill. PMHx - MDD PSHx - Denies history of colonoscopy or EGD FMHx - no GI related cancers or liver problems. SocHx - Previous heavy smoker, alcoholic. Quit drinking 1 month ago after rehab. He claims he would drink 5x 24oz beers or 12 shots of vodka per day. 12pt ROS negative except for above. Past Patient History - Infectious Disease Hx of Infectious Diseases: None - Past Medical History & Family History Past Medical History?: No - Past Social History Smoking Status: Former Smoker - CARDIAC Hx Hypertension: No - PULMONARY Hx Tuberculosis: No - NEUROLOGICAL Hx Seizures: No - HEMATOLOGICAL/ONCOLOGICAL Hx Human Immunodeficiency Virus (HIV): No - MUSCULOSKELETAL/RHEUMATOLOGICAL Hx Falls: No - GENITOURINARY/GYNECOLOGICAL Hx Sexually Transmitted Disorders: No - PSYCHIATRIC Hx Substance Use: No - SURGICAL HISTORY Hx Surgeries: No - ANESTHESIA Hx Anesthesia: No Meds Allergies/Adverse Reactions: Allergies Allergy/AdvReac Type Severity Reaction Status Date / Time No Known Allergies Allergy Verified 06/18/18 18:01 - Medications Medications: Current Medications Escitalopram Oxalate (Lexapro) 10 mg PO DAILY [facility] Last Admin: 06/20/18 09:49 Dose: 10 mg Famotidine (Pepcid) 20 mg IVP Q12 [facility] Last Admin: 06/20/18 22:53 Dose: 20 mg Heparin Sodium (Porcine) (Heparin) 5,000 units SC Q12 [facility] Last Admin: 06/20/18 22:53 Dose: 5,000 units Sodium Chloride (Sodium Chloride 0.9%) 1,000 mls @ 80 mls/hr IV .[id number] DAVID Last Admin: 06/20/18 23:08 Dose: 80 mls/hr Ciprofloxacin (Cipro 400mg/200ml Dsw) 400 mg in 200 mls @ 133 mls/hr IVPB Q12H DAVID; Protocol Last Admin: 06/21/18 03:39 Dose: 133 mls/hr Metronidazole (Flagyl) 500 mg in 100 mls @ 100 mls/hr IVPB Q8H DAVID; Protocol Last Admin: 06/21/18 01:20 Dose: 100 mls/hr Influenza Virus Vaccine (Flucelvax Quad [id number] Syr) 60 mcg IM .ONCE ONE Stop: 06/21/18 10:01 Lorazepam (Ativan) 1 mg PO Q12H PRN PRN Reason: Anxiety Last Admin: 06/19/18 19:26 Dose: 1 mg Pneumococcal Polyvalent Vaccine (Pneumovax 23 Vaccine) 0.5 ml IM .ONCE ONE Stop: 06/21/18 12:34 Trazodone HCl (Desyrel) 50 mg PO HS PRN PRN Reason: Insomnia Last Admin: 06/20/18 23:01 Dose: 50 mg Physical Exam - Constitutional Appears: Non-toxic, No Acute Distress - Head Exam Head Exam: ATRAUMATIC, NORMAL INSPECTION - Eye Exam Eye Exam: EOMI, Normal appearance - Respiratory Exam Respiratory Exam: Clear to Auscultation Bilateral, NORMAL BREATHING PATTERN - Cardiovascular Exam Cardiovascular Exam: REGULAR RHYTHM, +S1, +S2 - GI/Abdominal Exam GI & Abdominal Exam: Normal Bowel Sounds, Organomegaly, Soft. absent: Tenderness - Extremities Exam Extremities exam: Positive for: normal inspection. Negative for: pedal edema - Neurological Exam Neurological exam: Alert, CN II-XII Intact, Oriented x3 - Psychiatric Exam Psychiatric exam: Normal Affect, Normal Mood - Skin Skin Exam: Normal Color, Warm Results - Vital Signs Recent Vital Signs: Last Vital Signs Temp 97.2 F L 06/21/18 00:00 Pulse 69 06/21/18 00:00 Resp 20 06/21/18 00:00 BP 127/64 06/21/18 00:00 Pulse Ox 96 06/21/18 00:00 - Labs Result Diagrams: 06/20/18 08:18 06/20/18 08:18 Labs: Laboratory Results - last 24 hr 06/20/18 06/20/18 06/20/18 08:18 08:18 16:06 WBC 3.9 L D RBC 4.84 Hgb 15.3 Hct 45.2 MCV 93.4 MCH 31.7 H MCHC 33.9 RDW 13.1 Plt Count 227 MPV 9.5 Neut % (Auto) 48.3 L Lymph % (Auto) 24.6 [place] % (Auto) 14.9 H Eos % (Auto) 11.6 H Baso % (Auto) 0.6 Neut # (Auto) 1.9 Lymph # (Auto) 1.0 [place] # (Auto) 0.6 Eos # (Auto) 0.5 Baso # (Auto) 0.0 Sodium 139 Potassium 3.8 Chloride 107 Carbon Dioxide 23 Anion Gap 13 BUN 9 Creatinine 0.7 L Est GFR ( Amer) > 60 Est GFR (Non-Af Amer) > 60 Random Glucose 100 D Calcium 8.2 L Magnesium 2.0 Total Bilirubin 0.4 AST 82 H ALT 99 H Alkaline Phosphatase 78 Total Protein 6.0 L Albumin 3.4 L D Globulin 2.6 Albumin/Globulin Ratio 1.3 Hepatitis A IgM Ab Negative Hep Bs Antigen Negative Hep B Core IgM Ab Negative Hepatitis C Antibody Negative Assessment & Plan - Assessment and Plan (Free Text) Assessment: #Acute infectious gastroenteritis #Chronic alcoholic liver disease #Elevated liver enzymes #MDD #Hx of alcohol abuse, quit 1 month ago s/p rehab. PLAN: -CT reviewed, enterocolitis, fatty liver, hepatomegaly -Possibly a bacterial gastoenteritis given bandemia elevated PMNs, possibly staph aureus enterotoxin. Other causes could be viral. -Symptoms resolved, advance diet as tolerated. -D/C antibiotics after 5 days. -Obtain U/S of liver -Hepatitis panel negative -Advised he should have outpatient colonoscopy Case discussed with Dr. Benz, see attestation. - Date & Time Date: 06/21/18 Time: 07:35 <Cale Benz Y - Last Filed: 06/21/18 11:43> Meds - Medications Medications: Current Medications Escitalopram Oxalate (Lexapro) 10 mg PO DAILY [facility] Last Admin: 06/21/18 10:00 Dose: 10 mg Famotidine (Pepcid) 20 mg IVP Q12 [facility] Last Admin: 06/21/18 10:01 Dose: 20 mg Heparin Sodium (Porcine) (Heparin) 5,000 units SC Q12 DAVID Last Admin: 06/21/18 10:00 Dose: 5,000 units Sodium Chloride (Sodium Chloride 0.9%) 1,000 mls @ 80 mls/hr IV .[id number] DAVID Last Admin: 06/20/18 23:08 Dose: 80 mls/hr Ciprofloxacin (Cipro 400mg/200ml Dsw) 400 mg in 200 mls @ 133 mls/hr IVPB Q12H DAVID; Protocol Last Admin: 06/21/18 03:39 Dose: 133 mls/hr Metronidazole (Flagyl) 500 mg in 100 mls @ 100 mls/hr IVPB Q8H DAVID; Protocol Last Admin: 06/21/18 10:07 Dose: 100 mls/hr Lorazepam (Ativan) 1 mg PO Q12H PRN PRN Reason: Anxiety Last Admin: 06/19/18 19:26 Dose: 1 mg Pneumococcal Polyvalent Vaccine (Pneumovax 23 Vaccine) 0.5 ml IM .ONCE ONE Stop: 06/21/18 12:34 Trazodone HCl (Desyrel) 50 mg PO HS PRN PRN Reason: Insomnia Last Admin: 06/20/18 23:01 Dose: 50 mg Results - Vital Signs Recent Vital Signs: Last Vital Signs Temp 98.1 F 06/21/18 07:00 Pulse 70 06/21/18 07:00 Resp 20 06/21/18 07:00 BP 109/71 06/21/18 07:00 Pulse Ox 98 06/21/18 07:00 - Labs Result Diagrams: 06/20/18 08:18 06/20/18 08:18 Labs: Laboratory Results - last 24 hr 06/20/18 16:06 Hepatitis A IgM Ab Negative Hep Bs Antigen Negative Hep B Core IgM Ab Negative Hepatitis C Antibody Negative Attending/Attestation - Attestation I have personally seen and examined this patient.: Yes I have fully participated in the care of the patient.: Yes I have reviewed all pertinent clinical information: Yes Notes (Text): 06/21/18 11:38 I have seen and examined patient with GI fellow. Agree with above documentation with the following additions. In brief, this is a 52 year old male with history of ETOH abuse, depression, who presents to hospital with complaint of abdominal pain, diarrhea which began 2 days ago. Prior to this he was in usual state of health. He reports eating chicken which he felt tasted odd prior to symptom onset. He describes epigastric, 3/10 intensity pain that is worse after attempted meal consumption. His symptoms have mainly resolved since arrival to hospital and he has not had any further diarrhea for the past 24 hours. He denies nausea, vomiting, fever/chills, weight loss, rectal bleeding, or change in bowel habits. No prior endoscopic evaluation. Review of vitals from today are normal. Abdominal pain, diarrhea - resolved Gastroenteritis CT and US imaging reviewed by me showing fatty liver, small bowel wall thickening - Advance diet as tolerated - Continue with antibiotic therapy to complete 5 day course - Patient would ultimately benefit from elective outpatient screening colonoscopy - If tolerating PO diet, from GI standpoint ok to discharge home with additional outpatient follow up. Will sign off case, please reconsult as necessary, thank you.
[2018-06-21] MEDS ORDERED: Influenza Vaccine 60 mcg/0.5 mL SYR (4YR UP) IM ONE (10:00)
--- NOTE | 2018-06-21 10:37 | US ---
Date of service: 06/20/2018 HISTORY: elevated liver enzymes COMPARISON: None. TECHNIQUE: Sonographic evaluation of the abdomen. FINDINGS: LIVER: Measures 17 cm. Diffuse echogenicity of the liver parenchyma. No mass. No intrahepatic bile duct dilatation. GALLBLADDER: Unremarkable. No gallstones. COMMON BILE DUCT: Measures 4 mm. No stones. No dilatation. PANCREAS: Unremarkable as visualized. No mass. No ductal dilatation. RIGHT KIDNEY: Measures 11.4 x 4.3 x 5.1cm. Normal echogenicity. No calculus, mass, or hydronephrosis. LEFT KIDNEY: Measures 11.2 x 5.1 x 5.6cm. Normal echogenicity. No calculus, mass, or hydronephrosis. SPLEEN: Normal in size and contour. No mass. AORTA: No aneurysmal dilatation. IVC: Unremarkable. OTHER FINDINGS: None. IMPRESSION: Diffuse increased echogenicity of the liver. Can be seen with hepatic steatosis and other hepatocellular pathologies. No dilated ducts. No focal masses. Liver size top normal. Otherwise unremarkable exam
[2018-06-21 10:39] VITALS: BP 109/71; PULSE 70; TEMP 98.1; O2SAT 98
[2018-06-21] MEDS ORDERED: Pneumococcal 23-Valent Vaccine IM ONE (12:33)
--- NOTE | 2018-06-21 12:50 | CP.PCM.PN ---
Subjective - Date & Time of Evaluation Date of Evaluation: 06/21/18 Time of Evaluation: 08:30 - Subjective Subjective: clinically same Objective - Vital Signs/Intake and Output Vital Signs (last 24 hours): Temp Pulse Resp BP Pulse Ox 98.1 F 70 20 109/71 98 06/21/18 07:00 06/21/18 07:00 06/21/18 07:00 06/21/18 07:00 06/21/18 07:00 Intake and Output: 06/21/18 06/21/18 06:59 18:59 Intake Total 1280 Balance 1280 - Medications Medications: Current Medications Escitalopram Oxalate (Lexapro) 10 mg PO DAILY [facility] Last Admin: 06/21/18 10:00 Dose: 10 mg Famotidine (Pepcid) 20 mg IVP Q12 [facility]ID Last Admin: 06/21/18 10:01 Dose: 20 mg Heparin Sodium (Porcine) (Heparin) 5,000 units SC Q12 DAVID Last Admin: 06/21/18 10:00 Dose: 5,000 units Sodium Chloride (Sodium Chloride 0.9%) 1,000 mls @ 80 mls/hr IV .[id number] DAVID Last Admin: 06/20/18 23:08 Dose: 80 mls/hr Ciprofloxacin (Cipro 400mg/200ml Dsw) 400 mg in 200 mls @ 133 mls/hr IVPB Q12H DAVID; Protocol Last Admin: 06/21/18 03:39 Dose: 133 mls/hr Metronidazole (Flagyl) 500 mg in 100 mls @ 100 mls/hr IVPB Q8H DAVID; Protocol Last Admin: 06/21/18 10:07 Dose: 100 mls/hr Lorazepam (Ativan) 1 mg PO Q12H PRN PRN Reason: Anxiety Last Admin: 06/19/18 19:26 Dose: 1 mg Trazodone HCl (Desyrel) 50 mg PO HS PRN PRN Reason: Insomnia Last Admin: 06/20/18 23:01 Dose: 50 mg - Labs Labs: 06/20/18 08:18 06/20/18 08:18
--- NOTE | 2018-06-21 17:20 | CP.PCM.PN ---
Subjective - Date & Time of Evaluation Date of Evaluation: 06/21/18 Time of Evaluation: 11:00 - Subjective Subjective: ALERT. ORIENTED, TOLERATED FOOD. Objective - Vital Signs/Intake and Output Vital Signs (last 24 hours): Temp Pulse Resp BP Pulse Ox 98.1 F 70 20 109/71 98 06/21/18 07:00 06/21/18 07:00 06/21/18 07:00 06/21/18 07:00 06/21/18 07:00 Intake and Output: 06/21/18 06/21/18 06:59 18:59 Intake Total 1280 Balance 1280 - Labs Labs: 06/20/18 08:18 06/20/18 08:18 Assessment and Plan - Assessment and Plan (Free Text) Assessment: Patient admitted with enterocolitis, alrt and orientedx3, denies pain, tolerated food. Discussed with DR Regla Monroy, plan to discharge home today. Advised to follow up with PMD in 1 week and follow up with GI for WORK [employer] ADVISED.
== END 2018-06-21 14:26 | disposition home or self-care (01) ==
LOC: C.ER 17:54 → C.9E 06-19 00:37 → C.3T 06-19 11:06
PROVIDERS: ADMIT Internal Medicine Nephrology; ATTEND Internal Medicine Nephrology
DX: A09 Infectious gastroenteritis and colitis, unspecified (principal); F32.9 Major depressive disorder, single episode, unspecified; K70.9 Alcoholic liver disease, unspecified; K76.0 Fatty (change of) liver, not elsewhere classified; Z87.891 Personal history of nicotine dependence; F10.10 Alcohol abuse, uncomplicated; Z23 Encounter for immunization
CPT/HCPCS: 36415; 74177; 76700; 80053; 80074; 81001; 83690; 83735; 85025; 87040; 90471; 90674; 90732; 96365; 99285; G0378; J0744; J1644; J7030; Q9967

== ENCOUNTER 2018-09-22 22:16 | Emergency (ER) | payer SELFPAY ==
[2018-09-22 22:30] VITALS: PULSE 106; RESP 20; TEMP 98.5
--- NOTE | 2018-09-22 22:58 | C.PDOC ---
History Of Present Illness 53-year-old male presents to the ED for evaluation of a right-sided headache for one day. Patient states his headache is positional. He took Motrin 400mg this morning, with mild relief. He denies fever, chills. Patient admits to chronic drinking. Time Seen by Provider: 09/22/18 22:51 Chief Complaint (Nursing): Headache History Per: Patient History/Exam Limitations: no limitations Onset/Duration Of Symptoms: Hrs Current Symptoms Are (Timing): Still Present Quality: Aching, "Pain" Additional History Per: Patient Past Medical History Reviewed: Historical Data, Nursing Documentation, Vital Signs Vital Signs: Last Vital Signs Temp 98.5 F 09/22/18 22:27 Pulse 106 H 09/22/18 22:27 Resp 20 09/22/18 22:27 BP 167/80 H 09/22/18 22:27 Pulse Ox 97 09/22/18 22:27 Primary Care Provider: Samuel Monroy - Medical History PMH: Anxiety, Depression Denies: Diabetes, Hepatitis, HIV, HTN, Chronic Kidney Disease, Seizures, Sexually Transmitted Disease Surgical History: No Surg Hx - [facility] Procedures GROUP PSYCHOTHERAPY (06/03/18) INDIVIDUAL PSYCHOTHERAPY, SUPPORTIVE (06/03/18) Family History: States: Unknown Family Hx - Social History Hx Tobacco Use: No Hx Alcohol Use: Yes Hx Substance Use: No - Immunization History Hx Tetanus Toxoid Vaccination: No Hx Influenza Vaccination: Yes Hx Pneumococcal Vaccination: No Review Of Systems Constitutional: Negative for: Fever, Chills Neurological: Positive for: Headache (right-sided ) Physical Exam - Physical Exam Appears: Non-toxic, No Acute Distress, Other (no apparent distress ) Skin: Normal Color, Warm, Dry Head: Atraumatic, Normacephalic Eye(s): bilateral: Normal Inspection Ear(s): Bilateral: Normal Nose: Other (increased nasal congestion, right greater than left with kissing turbinates ) Oral Mucosa: Moist, Other (alcohol on breath ) Neck: Supple Chest: Symmetrical, No Deformity, No Tenderness Cardiovascular: Rhythm Regular, No Murmur Respiratory: Normal Breath Sounds, No Rales, No Rhonchi, No Wheezing Extremity: Normal ROM, Capillary Refill (less than 2 seconds ) Neurological/Psych: Oriented x3, Normal Speech, Normal Cognition ED Course And Treatment O2 Sat by Pulse Oximetry: 97 (on RA ) Pulse Ox Interpretation: Normal Progress Note: Motrin PO, Antivert PO, and Sudafed PO given. Medical Decision Making Medical Decision Making: sinus headache inflammaed R>L nasal passages motrin/psdeudafed dizziness prob due to nasal/sinus congestion Alcohol Abuse "typically 5 shots of vodka/day" only 3 shots today educated to taper down and seek Detox Disposition Doctor Will See Patient In The: Office Counseled Patient/Family Regarding: Studies Performed, Diagnosis - Disposition Referrals: Samuel Monroy MD [Staff Provider] - Disposition: HOME/ ROUTINE Disposition Time: 22:57 Condition: GOOD Additional Instructions: Sinus Headache: Motrin/Advil 400-600 mg cada 6 horas Pseudafed 30 mg cada 6 horas nader necessario Flonase Espray- 1 espray cada lado del nariz cada 12 horas hasta [place] Claritin 10 mg diario- baja inflammacin' nasal Abuso del Alcohol Sigue bajando poco a poco la cantidad de alcohol que consumes Busca Detox nader quiere [place] para yared Anxiedad/Depression Sigue con [facility] Instructions: Sinus Headache (DC) Forms: [facility] (Uzbek) Print Language: BENGALI - Clinical Impression Clinical Impression: Headache - Scribe Statement The provider has reviewed the documentation as recorded by the Scribe (Fiona Monroy) Provider Attestation: All medical record entries made by the Scribe were at my direction and personall y dictated by me. I have reviewed the chart and agree that the record accurately reflects my personal performance of the history, physical exam, medical decision making, and the department course for this patient. I have also personally directed, reviewed, and agree with the discharge instructions and disposition.
[2018-09-22 23:00] VITALS: BP 136/64
[2018-09-23 01:59] VITALS: O2SAT 97
== END 2018-09-22 23:22 | disposition home or self-care (01) ==
LOC: C.ER 22:16
DX: R51 Headache (principal)